=== PATIENT | male | born 1955 | race Caucasian/White ===

== ENCOUNTER 2018-03-20 01:48 | Outpatient (CLI) | payer BC, SELFPAY ==
[2018-03-20 12:04] LABS: Anion Gap 6.1 mmol/L (3-11); BUN 23 mg/dL (7-18); CO2 29.9 mmol/L (21.0-32.0); CREATININE 1.05 mg/dL (0.70-1.30); Calcium 9.2 mg/dL (8.5-10.1); Chloride 104 mmol/L (98-107); Cholesterol 195 mg/dL (50-200); Glucose 100 mg/dL (70-100); HDL Cholesterol 86 mg/dL (40-60); LDL CHOLESTEROL 97 mg/dL (<100); Potassium 4.6 mmol/L (3.5-5.1); Sodium 140 mmol/L (136-145); Triglyceride 40 mg/dL (30-150)
== END 2018-03-20 02:08 ==
PROVIDERS: PCP Family Medicine; Visit Provider Family Medicine
DX: I10 Essential (primary) hypertension (principal)
CPT/HCPCS: 36415; 80048; 80061; 83721

== ENCOUNTER 2019-03-08 02:41 | Outpatient (CLI) | payer MEDICARE, BC, SELFPAY ==
[2019-03-08 11:23] LABS: Anion Gap 8.8 mmol/L (3-11); BUN 19 mg/dL (7-18); CO2 27.2 mmol/L (21.0-32.0); CREATININE 0.96 mg/dL (0.70-1.30); Calcium 8.9 mg/dL (8.5-10.1); Chloride 106 mmol/L (98-107); Glucose 101 mg/dL (70-100); Potassium 4.4 mmol/L (3.5-5.1); Sodium 142 mmol/L (136-145)
== END 2019-03-08 03:01 ==
PROVIDERS: PCP Family Medicine; Visit Provider Family Medicine
DX: I10 Essential (primary) hypertension (principal)
CPT/HCPCS: 36415; 80048

== ENCOUNTER 2020-03-28 03:23 | Outpatient (CLI) | payer MEDICARE, SELFPAY ==
[2020-03-28 09:33] LABS: CREATININE 1.09 mg/dL (0.70-1.30); Calculated LDL 111 mg/dL (<100); Cholesterol 210 mg/dL (<200); HDL Cholesterol 87 mg/dL (40-60); Potassium 4.2 mmol/L (3.5-5.1); Triglyceride 61 mg/dL (<150)
[2020-03-30 12:50] LABS: PSA, Screening 3.2 ng/mL (0-4.5)
== END 2020-03-28 03:43 ==
PROVIDERS: PCP Nurse Practitioner; Visit Provider Nurse Practitioner
DX: I10 Essential (primary) hypertension (principal); E78.5 Hyperlipidemia, unspecified; N40.0 Benign prostatic hyperplasia without lower urinary tract symptoms
CPT/HCPCS: 36415; 80061; 84153; 82565; 84132

== ENCOUNTER → 2021-01-05 09:20 | Outpatient (BNVA) | payer MEDICARE, SELFPAY | PROVIDERS: PCP Nurse Practitioner; Referring Provider Nurse Practitioner; Visit Provider Surgery | DX: Z12.11 Encounter for screening for malignant neoplasm of colon (principal); Z12.12 Encounter for screening for malignant neoplasm of rectum; E78.2 Mixed hyperlipidemia; I10 Essential (primary) hypertension ==

== ENCOUNTER 2021-01-15 10:31 | Day surgery (SDC) | payer MEDICARE, SELFPAY ==
--- NOTE | 2021-01-15 06:43 | W.COLOREPORT ---
Date of service: 01/15/21 Time of Service: 12:36 Colonoscopy Report Date of procedure: 01/15/21 Pre-op diagnosis general: Colon Cancer Screening Post-op diagnosis procedure note: same Procedure: colonoscopy Surgeon: Radha Tao Anesthesia Type: General:No Airway (ASA 2/ Grant Boykin, STAN) Estimated blood loss (mL): 0 Complications: None Disposition: same day Indications: Mr. Nagy is a pleasant 65-year-old gentleman who is here to discuss colon cancer screening. His last colonoscopy was 2008. He has had no GI issues and no family history of colon cancer. The procedure was described in detail as well as its possible complications. Risks, benefits and complications have been reviewed. Complications include but are not limited to bleeding, pain, perforation, missed small lesion/polyp, sore throat, aspiration and adverse reaction to the medications. Questions were entertained and answered to their satisfaction and they wished to proceed. No guarantees were given or implied. Colonoscopy under sedation Prep: Miralax/Dulcolax Procedure Start Time: 12:36 Procedure End Time: 12:53 Retraction Time: 10 minutes Findings: internal hemorrhoids Procedure Description: After informed consent was obtained the patient was taken to the procedure room and placed in a left decubitous position. Monitors were applied and a time out was done. The patients name, date of , procedure, allergies to medications and metal in their body was reviewed. The patient was then sedated. Once sedated and comfortable a rectal exam was done. External exam was normal. Internal exam revealed a normal sphincter tone and no palpable masses. The prostate felt smooth and slightly enlarged. The scope was then introduced and retro-flexed. Grade 1 internal hemorrhoids were identified. No polyps or masses were identified on retro-flexion. The scope was then advanced to the cecum without difficulty. The ileocecal vlave and appendiceal orifice were identified. The prep was good. The scope was then slowly retracted over 10 minutes back into the rectum. There were no polyps and no diverticulosis noted. The scope was removed and the patient was woken up and taken back to Same day surgery in stable condition. The patient tolerated the procedure well and there were no immediate complications. Follow up: The patient should follow up in 10 years unless they develop changes in bowel habits or other new gastrointestinal complaints.
--- NOTE | 2021-01-15 06:44 | W.PM.DSUDISC ---
Discharge Plan Disposition Patient Disposition: HOME Condition: Good Discharge Details Reason For Visit: colonoscopy Attending Provider: Radha Tao Primary Care Provider: Ignacia Neves Home Meds and New Rx's Prescriptions: Continued atorvastatin [Lipitor] 10 mg tablet 10 mg PO DAILY Qty: 90 RF: 4 lisinopril-hydrochlorothiazide 10-12.5 mg tablet 1 tab PO DAILY Qty: 90 RF: 4 sildenafil [Viagra] 100 mg tablet See Rx Instructions PO PRN Qty: 4 RF: 5 PROCTOCREAM-HC 30 GM CREAM..G. 1 zenia Topical BID Qty: 3 RF: 0 terazosin 2 mg capsule 2 mg PO DAILY Qty: 90 RF: 4 Discontinued bisacodyl [Dulcolax (bisacodyl)] 5 mg tablet,delayed release (DR/EC) 5 mg PO ONCE Qty: 4 RF: 0 polyethylene glycol 3350 17 gram powder in packet 255 g PO DAILY Qty: 15 RF: 0 Discharge Instructions Instructions: Hemorrhoids (DC) Additional Instructions: Findings: internal hemorrhoids Follow up: 10 years Please call if you develop: fevers >101.5 Nausea or Vomiting Abdominal pain that is not transient Rectal bleeding that is more then a tbsp A hard abdomen and inability to pass gas DAY SURGERY UNIT POST ENDOSCOPY INSTRUCTIONS Instructions for everyone who is given Anesthesia: For your safety, please do the following for the next 24 Hours: a. Do not drive or operate dangerous equipment b. Do not drink alcohol beverages or use any recreational drugs for the first 24 hours or while taking pain medications. The medications in your body may have a reaction that can be dangerous. c. Do not make any important decisions or sign any important papers 1. Generally there are no restrictions on your activity after a day or so has gone by, but you may feel a bit fatigued for a few days. 2. After you arrive home you may have a light meal and return to a normal diet as you can tolerate it without feeling sick to your stomach. 3. After surgery, you may feel pain or discomfort. This should be only transient, but if it persists please contact your doctor. 4. If there are any questions regarding the findings of your procedure, please feel free to contact your doctor. 6. If you are unable to contact your doctor with a problem, contact the hospital at [phone]. 7. Continue all your regular medications unless directed otherwise. I understand the above instructions and have no questions. Signature of Patient or Responsible Adult Escort Date/Time Name of Responsible Adult Escort Signature of Nurse Date/Time Activity:: Activity as Tolerated Diet:: As Tolerated Discharge Orders Discharge Orders: Discharge Order (Routine); Ordered 01/15/21 Ordered By: Radha Tao
[2021-01-15 10:59] VITALS: BP 165/88; PULSE 67; RESP 14; TEMP 36.5; O2SAT 97
[2021-01-15] MEDS: Lactated Ringers 1,000 ML 80 ML IV (11:19)
--- NOTE | 2021-01-15 12:21 | W.ANESPRE ---
General Info Date of Service Date Performed: 01/15/21 Height: 5 ft 5 in Weight: 77.6 kg Body Mass Index (BMI): 28.4 Surgical Procedure: Operation Date: 01/15/21 11:35 Proposed Procedures Side Surgeon p Chante Tao MD Meds Allergies and Home Medications Allergies Allergy/AdvReac Type Severity Reaction Status Date / Time No Known Allergies Allergy Unverified 01/15/21 11:01 Home Medication Medication Instructions Recorded atorvastatin 10 mg tablet 10 mg PO DAILY #90 tab-cap 03/24/20 lisinopril 10 1 tab PO DAILY #90 tab-cap 03/24/20 mg-hydrochlorothiazide 12.5 mg tablet sildenafil 100 mg tablet See Rx Instructions PO PRN #4 tab 03/24/20 terazosin 2 mg capsule 2 mg PO DAILY #90 tab-cap 06/12/20 bisacodyl 5 mg tablet,delayed 5 mg PO ONCE #4 tab 01/05/21 release polyethylene glycol 3350 17 gram 255 g PO DAILY #15 ea 01/05/21 oral powder packet Current Visit Medications: Current Medications Generic Name Dose Route Start Last Admin Trade Name Freq PRN Reason Stop Dose Admin Hyoscyamine Sulfate 0.125 mg 01/15/21 06:45 Hyoscyamine 0.125 Mg Sl/Oral/Chew SL DIRECTED PRN Ringer's Solution 1,000 mls @ 80 mls/hr 01/15/21 06:00 01/15/21 11:19 IV 01/15/21 23:59 80 mls/hr INFUSION FRANCINE Administration IV Miscellaneous Supplies 1 each 01/15/21 06:00 Iv Access IV 01/15/21 23:59 DIRECTED FRANCINE Ondansetron HCl 4 mg 01/15/21 06:45 Ondansetron 4 Mg/2 Ml Vial IVP Q4H PRN PRN Nausea / Vomiting Sodium Chloride 0 ml 01/15/21 06:00 Normal Saline Flush 10 Ml Syr IV 01/15/21 23:59 PRN PRN Sodium Chloride 0 ml 01/15/21 06:00 Normal Saline 10 Ml Vial IJ 01/15/21 23:59 DIRECTED PRN Sterile Water 0 ml 01/15/21 06:00 Water,Injection,Sterile 10 Ml Vial IJ 01/15/21 23:59 DIRECTED PRN PFSH Active Problems Active Problems: Problem Status Onset Code Benign prostatic hyperplasia 09/29/12 N40.0 Hyperlipidemia E78.5 Hypertension I10 Sexual function problem F52.9 Excessive drinking alcohol F10.10 Medical History Medical History Benign prostatic hyperplasia (09/29/12) Excessive drinking alcohol History of tobacco use Hyperlipidemia Hypertension Sexual function problem erectile dysfunction Smoker quit in 1984 <15 years Surgical History Surgical History S/P colonoscopy 2009- normal Tobacco Smoking/Tobacco Use Status: Former Tobacco Use Passive smoking exposure: Yes Substance Use Substance use type: does not use Details: alcohol: t-5, two drinks Vital Signs and Lab Results Vital Signs Most Recent Vital Signs in EMR: Most Recent Vital Signs Temp Pulse Resp BP Pulse Ox 36.5 C 67 14 165/88 H 97 01/15/21 10:59 01/15/21 10:59 01/15/21 10:59 01/15/21 10:59 01/15/21 10:59 Lab Results Blood Type / Crossmatch: No Data to Display Complete Blood Count: No Data to Display Complete Metabolic Panel: No Data to Display Liver Function Panel: No Data to Display Coagulation Panel: No Data to Display Cardiac Panel: No Data to Display Arterial Blood Gas: No Data to Display Venous Blood Gas: No Data to Display Pancreas Panel: No Data to Display Thyroid Panel: No Data to Display Infectious Disease: No Data to Display Blood Cultures: No Data to Display Toxicology Panel: No Data to Display Anesthesia Assessment and Plan Anesthesia History Personal History: No History of General Anesthesia Family History: No Family History of Anesthesia Complications Exercise Tolerance Exercise Tolerance: Metabolic Equivalents>4 Pertinent Negatives Pertinent Negatives: No Symptoms of GERD, No Major Cardiovascular Symptoms or Complaints, No Major Pulmonary Symptoms or Complaints and No History of CVA/TIA Cardiac & Pulmonary Exam Cardiac Exam: Normal S1/S2 Heart Sounds Pulmonary Exam: Clear Bilateral Breath Sounds Airway Exam Known Difficult Airway: No Mallampati Class: 1 Mouth Opening: Normal (> 3cm) Thyromental Distance: Greater than 3 cm Neck Range of Motion: Full ROM Neck Circumference: Normal Teeth Condition: Normal Dentition ASA Classification ASA Score: ASA 2 Emergency Case?: No NPO Status NPO Status: NPO Clears >2 hours, Solids >8 hours Anesthesia Plan Resuscitation Status: Full Code Anesthesia Technique: General Anesthesia Airway Planned: Natural Airway Monitors Used: Standard Monitors
[2021-01-15 12:24] VITALS: BMI 28.4
[2021-01-15 13:05] VITALS: BP 100/63; PULSE 53; RESP 18; TEMP 36.3; O2SAT 95
--- NOTE | 2021-01-15 13:07 | W.ANESPOSTOP ---
Postoperative Evaluation Date, Time and Location Date Performed: 01/15/21 Time Performed: 13:07 Patient Location: Day Surgery Unit Vital Signs Most Recent Imported Vital Signs: Most Recent Vital Signs Temp Pulse Resp BP Pulse Ox 36.5 C 67 14 165/88 H 97 01/15/21 10:59 01/15/21 10:59 01/15/21 10:59 01/15/21 10:59 01/15/21 10:59 Most Recent Manually Entered Vital Signs: Adult Blood Pressure: 100/63 Heart Rate: 52 Respirations: 12 Oxygen Saturation (%): 98 Temperature (C): 36.3 C Pain Score (0-10 Scale): 0 Pain Score Most Recent Pain Score: Most Recent Pain Score Pain Level 0 01/15/21 10:59 Assessment Mental Status: Awake (Alert & Oriented to Patient Baseline) Airway and Respiratory Function: Patent airway with normal (patient baseline) respiratory exam Cardiovascular Function: Hemodynamically Stable Hydration Status: Adequately Hydrated Nausea & Vomiting: No Nausea or Vomiting Pain: Pt. Denies Any Pain Peripheral Nerve Block: Patient did not receive a nerve block
[2021-01-15 13:08] VITALS: BP 100/63; PULSE 52; RESP 12; TEMPC 36.3; O2SAT 98
[2021-01-15 13:35] VITALS: BP 115/69; PULSE 55; RESP 16; TEMP 36.2; O2SAT 98
== END 2021-01-15 14:12 | disposition home or self-care (01) ==
LOC: SUR 10:31
PROVIDERS: PCP Nurse Practitioner; Visit Provider Surgery
PROC: 0DJD8ZZ Inspection of Lower Intestinal Tract, Via Natural or Artificial Opening Endoscopic (ICD-10-PCS; CPT 45378; principal; 2021-01-15 11:30)
DX: Z12.11 Encounter for screening for malignant neoplasm of colon (principal); K64.0 First degree hemorrhoids
CPT/HCPCS: G0121

== ENCOUNTER 2021-03-22 02:08 | Outpatient (CLI) | payer MEDICARE, SELFPAY ==
[2021-03-22 08:30] LABS: Calculated LDL 97 mg/dL (<100); Cholesterol 197 mg/dL (<200); HDL Cholesterol 90 mg/dL (40-60); Potassium 4.4 mmol/L (3.5-5.1); Triglyceride 51 mg/dL (<150)
[2021-03-22 18:27] LABS: PSA, Screening 3.9 ng/mL (0.0-4.5)
== END 2021-03-22 02:09 | disposition home or self-care (01) ==
LOC: LBO 02:08
PROVIDERS: PCP Nurse Practitioner; Visit Provider Nurse Practitioner
DX: I10 Essential (primary) hypertension (principal); E78.2 Mixed hyperlipidemia; N40.1 Benign prostatic hyperplasia with lower urinary tract symptoms; R35.0 Frequency of micturition; Z12.5 Encounter for screening for malignant neoplasm of prostate
CPT/HCPCS: 36415; 80061; 84153; 82565; 84132

== ENCOUNTER 2022-06-11 03:05 | Outpatient (CLI) | payer MEDICARE, SELFPAY ==
[2022-06-11 12:49] LABS: CREATININE 1.1 mg/dL (0.70-1.30); Calculated LDL 111 mg/dL (<100); Cholesterol 200 mg/dL (<200); Estimated GFR 73.12 (mL/min/1.73m2); HDL Cholesterol 77 mg/dL (40-60); Potassium 4.2 mmol/L (3.5-5.1); Triglyceride 64 mg/dL (<150)
[2022-06-11 18:47] LABS: PSA, Screening 4.5 ng/mL (<=4.5)
[2022-06-11 19:26] LABS: Estimated Average Glucose 97 mg/dL
== END 2022-06-11 03:06 | disposition home or self-care (01) ==
PROVIDERS: PCP Nurse Practitioner Family; Visit Provider Nurse Practitioner Family
DX: I10 Essential (primary) hypertension; N40.0 Benign prostatic hyperplasia without lower urinary tract symptoms; E78.5 Hyperlipidemia, unspecified; R73.09 Other abnormal glucose; E78.2 Mixed hyperlipidemia; Z12.5 Encounter for screening for malignant neoplasm of prostate
CPT/HCPCS: 36415; 80061; 84153; 82565; 83036; 84132

== ENCOUNTER → 2022-10-17 10:44 | Outpatient (BNVA) | payer MEDICARE, SELFPAY | PROVIDERS: PCP Nurse Practitioner Family; Referring Provider Nurse Practitioner Family; Visit Provider Nurse Practitioner Gerontology | DX: N40.1 Benign prostatic hyperplasia with lower urinary tract symptoms (principal); R35.0 Frequency of micturition; I10 Essential (primary) hypertension | CPT/HCPCS: 51798; 99213 ==

== ENCOUNTER 2023-06-05 03:53 | Outpatient (CLI) | payer MEDICARE, SELFPAY ==
[2023-06-05 12:14] LABS: HCT 43.4 % (40.0-50.0); MCH 31.2 pg (27.0-33.0); MCHC 34.6 % (32.0-36.0); MCV 90 fL (80-95); MPV 11.8 fL (8.0-11.0); Platelet Count 159 10^3/uL (130-400); RBC 4.81 10^6/uL (4.36-5.78); RDW 11.9 % (11.8-14.1); RDW-SD 39.2 fL; WBC 5.33 10^3/uL (4.4-10.8)
[2023-06-05 12:35] LABS: ALT 25 U/L (16-63); AST 24 U/L (15-37); Albumin 4.3 g/dL (3.4-5.0); Alkaline Phosphatase 67 U/L (46-116); Anion Gap 5.4 mmol/L (3-11); BUN 18 mg/dL (7-18); Bilirubin, Total 0.6 mg/dL (0.2-1.0); CO2 29.6 mmol/L (21.0-32.0); CREATININE 1.1 mg/dL (0.70-1.30); Calcium 9.4 mg/dL (8.5-10.1); Calculated LDL 101 mg/dL (<100); Chloride 103 mmol/L (98-107); Cholesterol 198 mg/dL (<200); Estimated GFR 72.67 (mL/min/1.73m2); Glucose 100 mg/dL (74-106); HDL Cholesterol 87 mg/dL (40-60); Potassium 4.1 mmol/L (3.5-5.1); Sodium 138 mmol/L (136-145); TSH (W/Ref FT4) 1.85 uIU/mL (0.36-3.74); Total Protein 7.3 g/dL (6.4-8.2); Triglyceride 50 mg/dL (<150)
[2023-06-05 19:59] LABS: PSA, Diagnostic 3.3 ng/mL (<=4.5)
[2023-06-05 20:39] LABS: Hepatitis C Ab w Rflx HCV PCR Negative (Negative)
== END 2023-06-05 03:54 | disposition home or self-care (01) ==
LOC: LOS 03:53
PROVIDERS: Nurse Practitioner Gerontology; PCP Nurse Practitioner Family; Visit Provider Nurse Practitioner Family
DX: N40.0 Benign prostatic hyperplasia without lower urinary tract symptoms (principal); R97.20 Elevated prostate specific antigen [PSA]; E78.2 Mixed hyperlipidemia; F10.10 Alcohol abuse, uncomplicated; F52.9 Unspecified sexual dysfunction not due to a substance or known physiological condition; I10 Essential (primary) hypertension; N40.1 Benign prostatic hyperplasia with lower urinary tract symptoms; R35.0 Frequency of micturition; Z87.891 Personal history of nicotine dependence
CPT/HCPCS: 80053; 80061; 85027; 86803; 84153; 84443

== ENCOUNTER → 2023-11-26 08:18 | Outpatient (BNVA) | payer MEDICARE, SELFPAY | PROVIDERS: PCP Nurse Practitioner Family; Referring Provider Nurse Practitioner Family; Visit Provider Nurse Practitioner Gerontology | DX: N40.1 Benign prostatic hyperplasia with lower urinary tract symptoms (principal); N13.8 Other obstructive and reflux uropathy; R35.0 Frequency of micturition; R97.20 Elevated prostate specific antigen [PSA] | CPT/HCPCS: 99213 ==

== ENCOUNTER 2024-06-01 16:04 | Outpatient (CLI) | payer MEDICARE, SELFPAY ==
[2024-06-01 23:04] LABS: PSA, Screening 3.8 ng/mL (<=6.5)
== END 2024-06-01 16:05 | disposition home or self-care (01) ==
LOC: LBO 16:05
PROVIDERS: PCP Nurse Practitioner Family; Visit Provider Nurse Practitioner Gerontology
DX: N40.1 Benign prostatic hyperplasia with lower urinary tract symptoms (principal); N13.8 Other obstructive and reflux uropathy; R39.9 Unspecified symptoms and signs involving the genitourinary system
CPT/HCPCS: 36415; 84153

== ENCOUNTER 2024-07-01 02:00 | Outpatient (CLI) | payer MEDICARE, SELFPAY ==
[2024-07-01 08:33] LABS: HCT 39.6 % (40.0-50.0); HGB 13.7 g/dL (13.5-17.5); MCH 31.2 pg (27.0-33.0); MCHC 34.6 % (32.0-36.0); MCV 90 fL (80-95); MPV 10.6 fL (8.0-11.0); Platelet Count 146 10^3/uL (130-400); RBC 4.39 10^6/uL (4.36-5.78); RDW 12.1 % (11.8-14.1); RDW-SD 40.4 fL; WBC 5.81 10^3/uL (4.4-10.8)
[2024-07-01 09:06] LABS: ALT 21 U/L (16-63); AST 19 U/L (15-37); Albumin 4.1 g/dL (3.4-5.0); Alkaline Phosphatase 69 U/L (46-116); Anion Gap 6.2 mmol/L (3-11); BUN 15 mg/dL (7-18); Bilirubin, Total 0.62 mg/dL (0.2-1.0); CO2 29.8 mmol/L (21.0-32.0); CREATININE 1.2 mg/dL (0.70-1.30); Calcium 9.5 mg/dL (8.5-10.1); Calculated LDL 83 mg/dL (<100); Chloride 104 mmol/L (98-107); Cholesterol 181 mg/dL (<200); Estimated GFR 65.06 (mL/min/1.73m2); Glucose 101 mg/dL (74-106); HDL Cholesterol 90 mg/dL (40-60); Potassium 4.2 mmol/L (3.5-5.1); Sodium 140 mmol/L (136-145); Total Protein 7.1 g/dL (6.4-8.2); Triglyceride 42 mg/dL (<150)
== END 2024-07-01 02:01 | disposition home or self-care (01) ==
PROVIDERS: PCP Nurse Practitioner Family; Visit Provider Nurse Practitioner Family
DX: F10.10 Alcohol abuse, uncomplicated (principal); Z00.00 Encounter for general adult medical examination without abnormal findings; I10 Essential (primary) hypertension; E78.2 Mixed hyperlipidemia; N40.1 Benign prostatic hyperplasia with lower urinary tract symptoms; R35.0 Frequency of micturition; R97.20 Elevated prostate specific antigen [PSA]
CPT/HCPCS: 36415; 80053; 80061; 85027

== ENCOUNTER → 2024-11-24 08:24 | Outpatient (BNVA) | payer MEDICARE, SELFPAY | PROVIDERS: PCP Nurse Practitioner Family; Visit Provider Nurse Practitioner Gerontology | DX: N40.1 Benign prostatic hyperplasia with lower urinary tract symptoms (principal); R35.0 Frequency of micturition; R97.20 Elevated prostate specific antigen [PSA]; R39.9 Unspecified symptoms and signs involving the genitourinary system | CPT/HCPCS: 99213; 51798 ==